=== PATIENT | male | born 1965 | race Caucasian/White ===

== ENCOUNTER 2020-05-29 17:29 | Emergency (ER) | payer OTHER ==
[~2020-05-29] VITALS: Ht 167.6 cm; Wt 84.6 kg
[2020-05-29] MEDS ORDERED: ETOMIDATE INJ 20MG/10ML VIAL ONE (17:30)
[2020-05-29] MEDS ORDERED: ROCURONIUM BROMIDE 50 MG/5 ML VIAL ONE (17:30)
[2020-05-29] MEDS ORDERED: NALOXONE 2MG/2ML SYRINGE (J2310 PER 1MG) As Ordered ONE (17:37)
[2020-05-29] MEDS ORDERED: ETOMIDATE INJ 20MG/10ML VIAL IV ONE ×2 (17:40→17:55)
[2020-05-29] MEDS ORDERED: ROCURONIUM BROMIDE 50 MG/5 ML VIAL IV ONE ×2 (17:40→17:55)
--- NOTE | 2020-05-29 17:44 | ED PDOC ---
Post-Departure Follow-Up [facility] accessed via "Break the glass" due to GCS 4, to assist Dr. Christian. No signif icant information except DOT physical urinalysis results. Geraldo Painting M.D. May 29, 2020 17:43
[2020-05-29] MEDS ORDERED: PROPOFOL 1,000 MG/100 ML VIAL As Ordered ONE (17:51)
[2020-05-29] MEDS ORDERED: propofoL 1,000 MG in IV 1 EA IV SCH (17:59)
[2020-05-29 18:05] LABS: BASO # 0.1 10^3/uL (0.0-0.2); BASO % 1.3 % (0.0-1.0); EOS # 0.4 10^3/uL (0.0-0.5); EOS % 4.1 % (0.0-3.0); HEMATOCRIT 43.4 % (42.0-52.0); HEMOGLOBIN 14.7 g/dl (13.5-17.5); LYMPH # 1.8 10^3/uL (1.5-5.0); LYMPH % 17.5 % (24.0-44.0); MEAN CORPUSCULAR HEMOGLOBIN 31.5 pg (27.0-33.0); MEAN CORPUSCULAR HGB CONC 33.9 g/dl (32.0-36.5); MEAN CORPUSCULAR VOLUME 93.1 fl (80.0-96.0); MONO # 1.3 10^3/uL (0.0-0.8); NEUTROPHILS # 6.5 10^3/uL (1.5-8.5); NEUTROPHILS % 63.7 % (36.0-66.0); PLATELET COUNT, AUTOMATED 251 10^3/uL (150-450); RED BLOOD COUNT 4.66 10^6/uL (4.30-6.10); WHITE BLOOD COUNT 10.2 10^3/uL (4.0-10.0)
--- NOTE | 2020-05-29 18:10 | REP ---
INDICATION: POST INTUBATION TUBE PLACEMENT. COMPARISON: None. TECHNIQUE: SINGLE PORTABLE AP VIEW OF THE CHEST WAS PERFORMED. FINDINGS: Endotracheal tube tip is approximately 2 cm above the lance. Nasogastric tube is appropriately positioned in the stomach. Cardiac silhouette is mildly prominent but may be magnified. Probable small calcified granuloma seen in the right upper lobe. There is poor ventilation with likely bibasilar fibro atelectatic change. IMPRESSION: Endotracheal tube tip 2 cm above the lance. Nasogastric tube well positioned in the stomach. Bibasilar fibro atelectatic change. <Electronically signed by Harley Estrada > 05/29/20 [id number]
[2020-05-29] MEDS ORDERED: niCARdipine IV 40 MG in IV 1 EA IV SCH (18:15)
[2020-05-29 18:24] LABS: OSMOLALITY SERUM 298 MOSM/KG (275-295)
[2020-05-29 18:25] LABS: AMPHETAMINES LEVEL URINE NEGATIVE (NEGATIVE); BARBITURATES URINE NEGATIVE (NEGATIVE); BENZODIAZEPINES URINE NEGATIVE (NEGATIVE); CANNABINOIDS URINE NEGATIVE (NEGATIVE); COCAINE METABOLITE URINE NEGATIVE (NEGATIVE); METHADONE URINE NEGATIVE (NEGATIVE); OPIATES URINE NEGATIVE (NEGATIVE); PHENCYCLIDINE URINE NEGATIVE (NEGATIVE)
[2020-05-29 18:35] LABS: ALBUMIN 3.3 GM/DL (3.2-5.2); ALT/SGPT 25 U/L (12-78); BILIRUBIN,DIRECT < 0.1 MG/DL (0.0-0.2); BILIRUBIN,TOTAL 0.3 MG/DL (0.2-1.0); BLOOD UREA NITROGEN 30 MG/DL (7-18); CALCIUM LEVEL 7.6 MG/DL (8.5-10.1); CARBON DIOXIDE LEVEL 24 MEQ/L (21-32); CHLORIDE LEVEL 112 MEQ/L (98-107); CK-MB VALUE MASS 4.7 NG/ML (<3.6); CPK CREATINE PHOSPHOKINASE 166 U/L (39-308); CREATININE FOR GFR 2.31 MG/DL (0.70-1.30); ETHYL ALCOHOL (ETHANOL) < 0.003 % (0.000-0.010); GLOMERULAR FILTRATION RATE 31.7 (>56); GLUCOSE, FASTING 123 MG/DL (70-100); MB/CK RELATIVE INDEX 2.83 (< OR =4); POTASSIUM SERUM 2.9 MEQ/L (3.5-5.1); SODIUM LEVEL 145 MEQ/L (136-145); TOTAL PROTEIN 5.9 GM/DL (6.4-8.2); TROPONIN I 0.41 NG/ML (< 0.10)
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
[2020-05-29 18:45] VITALS: BP 175/90
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
--- NOTE | 2020-05-30 02:05 | ECGEPIP ---
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
== END 2020-05-29 18:45 | disposition short-term general hospital (02) ==
LOC: M ED 17:29
DX: I62.9 Nontraumatic intracranial hemorrhage, unspecified (principal)